=== PATIENT | male | born 1995 | race Caucasian/White ===

== ENCOUNTER 2018-05-01 22:39 | Emergency (ER) | payer SELFPAY ==
--- NOTE | 2018-05-01 23:31 | RADIOLOGY REPORT (SQ) ---
EXAM DESCRIPTION: XR CHEST 1 VIEW COMPLETED DATE/TME: 05/01/2018 23:12 CLINICAL HISTORY: 22 years Male, cough COMPARISON: None. NUMBER OF VIEWS/TECHNIQUE: 1/AP FINDINGS: Adequate lung volume, clear parenchyma, normal cardiac silhouette, and intact bony thorax. IMPRESSION: No acute cardiopulmonary findings.
[2018-05-02] MEDS ORDERED: BENZONATATE 100 MG CAPSULE PO ONE (00:49)
[2018-05-02] MEDS ORDERED: LIDOCAINE 2% INJ-PF (20 MG/ML) 10 ML AMPUL NEB ONE (00:49)
[2018-05-02] MEDS ORDERED: DEXAMETHASONE 4 MG TABLET PO ONE (00:49)
[2018-05-02] MEDS ORDERED: ALBUTEROL SULFATE HFA (90 MCG/PUFF) 200 PUFF/8.5 GM MDI IH ONE (00:51)
--- NOTE | 2018-05-02 00:53 | ER Document Report ---
ED General - General Chief Complaint: Cold Symptoms Stated Complaint: COUGHING,VOMITING Time Seen by Provider: 05/01/18 23:10 Notes: Patient is a 22-year-old male without chronic medical problems, current everyday tobacco user who presents with complaints of 3 days of a persistent cough with associated posttussive emesis. The patient states that sometimes he has coughing fits that are so severe it makes him vomit. He states the episodes of coughing, on randomly without any clear trigger. He also notes nasal congestion, sore throat and body aches. He has not had fever. States he has a history of similar symptoms with bronchitis in the past. He has continued to smoke. No history of asthma. He has not seen his general doctor regarding today's concerns. He denies any shortness of breath, hemoptysis, or weight loss. TRAVEL OUTSIDE OF THE [place] IN LAST 30 DAYS: No - Related Data Allergies/Adverse Reactions: No Known Allergies Allergy (Verified 05/01/18 22:41) Past Medical History - General Information source: Patient - Social History Smoking Status: Current Every Day Smoker Cigarette use (# per day): Yes - 1 pack/day Smoking Education Provided: Yes - Smoking cessation counseling was provided for 4 minutes at the bedside Frequency of alcohol use: None Drug Abuse: None Lives with: Alone Family History: Reviewed & Not Pertinent Review of Systems - Review of Systems Notes: Constitutional: Negative for fever. HENT: Negative for sore throat. Eyes: Negative for visual changes. Cardiovascular: Negative for chest pain. Respiratory: Positive for persistent cough Gastrointestinal: Negative for abdominal pain, positive for posttussive emesis Genitourinary: Negative for dysuria. Musculoskeletal: Negative for back pain. Skin: Negative for rash. Neurological: Negative for headaches, weakness or numbness. 10 point ROS negative except as marked above and in HPI. Physical Exam - Vital signs Vitals: Temp Pulse Resp BP Pulse Ox 97.9 F 79 20 120/70 98 05/01/18 22:57 05/01/18 22:57 05/01/18 22:57 05/01/18 22:57 05/01/18 22:57 Interpretation: Normal Notes: PHYSICAL EXAMINATION: GENERAL: Well-appearing, well-nourished and in no acute distress. HEAD: Atraumatic, normocephalic. EYES: Pupils equal round and reactive to light, extraocular movements intact, sclera anicteric, conjunctiva are normal. ENT: nares patent, oropharynx clear without exudates. Moist mucous membranes. NECK: Normal range of motion, supple without lymphadenopathy LUNGS: Breath sounds clear to auscultation bilaterally and equal. No wheezes rales or rhonchi. HEART: Regular rate and rhythm without murmurs ABDOMEN: Soft, nontender, normoactive bowel sounds. No guarding, no rebound. No masses appreciated. EXTREMITIES: Normal range of motion, no pitting or edema. No cyanosis. NEUROLOGICAL: No focal neurological deficits. Moves all extremities spontaneously and on command. PSYCH: Normal mood, normal affect. SKIN: Warm, Dry, normal turgor, no rashes or lesions noted. Course - Re-evaluation Re-evalutation: 05/02/18 00:49 Patient presents with a clinical history and exam most consistent with an acute viral bronchitis. Patient is overall well in appearance without tachypnea, hypoxemia, tachycardia, or difficulty with ambulation. Breath sounds are clear bilaterally. No fever. Patient does have additional signs of upper respiratory infection including nasal congestion, sore throat, and sinus pressure. Chest x-ray does not show any acute infiltrates. Will treat with bronchodilators, single dose of dexamethasone, and Tessalon Perles. At this time will discharge with return precautions and follow-up recommendations. Verbal discharge instructions given a the bedside and opportunity for questions given. Medication warnings reviewed. Patient is in agreement with this plan and has verbalized understanding of return precautions and the need for primary care follow-up in the next 24-72 hours. - Vital Signs Vital signs: Temp Pulse Resp BP Pulse Ox 97.5 F 80 18 119/69 99 05/02/18 01:30 05/02/18 01:30 05/02/18 01:30 05/02/18 01:30 05/02/18 01:30 - Diagnostic Test Radiology reviewed: Image reviewed, Reports reviewed Radiology results interpreted by me: 05/02/18 00:49 Chest x-ray: No acute infiltrate or pneumothorax Discharge - Discharge Clinical Impression: Bronchitis, Post-tussive emesis Condition: Good Disposition: HOME, SELF-CARE Additional Instructions: You were seen for symptoms most consistent with bronchitis. This can take up to 12 weeks to fully resolve. This is generally due to a viral infection. Please follow-up with your primary doctor in the next 2-3 days. Return if you develop worsening cough, vomiting, fever >100.4, pass out, begin coughing blood, or have any other symptoms that are concerning to you. Please use the medications prescribed today as directed. Prescriptions: Benzonatate [Tessalon Perles 100 mg Capsule] 100 mg PO Q8HP PRN #40 capsule PRN Reason:
[2018-05-02 02:01] VITALS: BP 119/69
== END 2018-05-02 01:30 | disposition home or self-care (01) ==
LOC: ER 22:39
DX: J40 Bronchitis, not specified as acute or chronic (principal); R11.10 Vomiting, unspecified; R05 Cough; R09.81 Nasal congestion; J02.9 Acute pharyngitis, unspecified; J34.89 Other specified disorders of nose and nasal sinuses; F17.210 Nicotine dependence, cigarettes, uncomplicated; Z71.6 Tobacco abuse counseling
CPT/HCPCS: 99406; 94640; 99283; 71045; J3490 ×2